=== PATIENT | female | born 1935 | race Caucasian/White ===

== ENCOUNTER 2022-01-12 08:10 | Day surgery (SDC) | payer MEDICARE ==
[~2022-01-12 08:10] MED LIST: Lactated Ringers 1,000 ML IV SCH
[2022-01-12] MEDS ORDERED: Propofol 200 MG/20 ML SDV ONE (09:20)
[2022-01-12] MEDS ORDERED: ePHEDrine 50 MG/ML SDV ONE (10:18)
[2022-01-12] MEDS ORDERED: Ondansetron 4 MG/2 ML SDV IVPUSH PRN (11:29)
[2022-01-12] MEDS ORDERED: Lactated Ringers 1,000 ML IV SCH ×2 (11:30)
== END 2022-01-12 12:20 | disposition home or self-care (01) ==
LOC: MW.SDS 08:10
PROVIDERS: ATTEND Surgery
DX: K31.7 Polyp of stomach and duodenum (principal); K29.00 Acute gastritis without bleeding; M19.90 Unspecified osteoarthritis, unspecified site; K57.90 Diverticulosis of intestine, part unspecified, without perforation or abscess without bleeding; J30.9 Allergic rhinitis, unspecified; I10 Essential (primary) hypertension; E78.00 Pure hypercholesterolemia, unspecified; F19.90 Other psychoactive substance use, unspecified, uncomplicated; Z79.899 Other long term (current) drug therapy; Z98.890 Other specified postprocedural states; Z86.010 Personal history of colon polyps; Z88.1 Allergy status to other antibiotic agents; Z72.89 Other problems related to lifestyle
CPT/HCPCS: 43239; J2704; J7120; 00731; 99100